=== PATIENT | male | born 1960 | race Caucasian/White ===

== ENCOUNTER 2024-10-22 12:48 | Emergency (ER) | payer MEDICARE, OTHER, SELFPAY ==
[2024-10-22 12:51] VITALS: BP 151/84
--- NOTE | 2024-10-22 13:47 | ED.GENMED ---
History of Present Illness
General
Chief Complaint: Alcohol Problem
Source: patient
Exam Limitations: none
Time Seen by Provider: 10/22/24 13:30
History of Present Illness
History of Present Illness:
64-year-old male concern for help for alcohol and sex addiction. Drinks a pint of hard liquor a day. Is been going on for a while. Also was caught on his phone with some issues that were transferred to his grandson about a sexual addiction issue.
Patient's daughter encouraged him to get help for both. He denies any acute medical complaints. He denies chest pain shortness of breath nausea vomiting withdrawal symptoms etc.
Past History
Past History
ED Past Medical History: HTN, IDDM and Other (Liver transplantm Hep C, Pancreatitis,)
ED Past Surgical History: Cholecystectomy
Social History
Tobacco: Non-smoker
Alcohol: None
Personal:
Living: with family
Review of Systems
Review of Systems
All Other Systems: Not applicable
Constitutional: Reports no symptoms
Cardiac: Reports no symptoms
ABD/GI: Reports no symptoms
: Reports no symptoms
Phy Exam
Physical Exam
Physical Exam:
GENERAL: Alert and oriented in no apparent distress
EYE: Orbits normal.
NECK: Supple, no significant adenopathy.
ENT: Pharynx without erythema
CARDIAC: Regular rate and rhythm without any obvious murmurs.
LUNGS: Clear breath sounds,normal
ABDOMEN: Soft, without focal tenderness or distention
NEUROLOGICAL: Alert and oriented , grossly non-focal
SKIN: Warm and dry, no rash or lesion, no discoloration, skin intact.
MUSCULOSKELETAL: No edema,no deformity.Good color
PSYCH: Normal and appropriate interaction.
Scores
Withdrawal Assessment of Alcohol
Withdrawal Assessment Completed?: Not applicable
Course
Orders/Labs/Results
Orders:
Orders
10/22/24 13:36
Crisis Consult Urgent
Reason for Consult: Alcohol/sex addiction
10/22/24 14:15
Alcohol Urgent
Complete Blood Count/With Diff Urgent
Comprehensive Metabolic Panel Urgent
PTT Urgent
Prothrombin Time Urgent
Abnormal Lab Results
10/22/24
14:15
RBC 4.01 L 10^6/uL
(4.70-6.10)
Hct 38.6 L %
(39.0-52.0)
MCV 96.3 H fL
(80.0-94.0)
MCH 35.2 H pg
(27.0-31.0)
Abs Immat Gran (auto) 0.1 H 10^3/uL
(0-0.05)
Absolute Lymphs (auto) 0.9 L 10^3/uL
(1.2-3.4)
Absolute Monos (auto) 0.8 H 10^3/uL
(0.1-0.6)
Immature Gran % 0.9 H %
(0-0.5)
Lymphocytes % 13.8 L %
(20.5-51.1)
Monocytes % 12.1 H %
(1.7-9.3)
Sodium 127 L mmol/L
(135-145)
Chloride 89 L mmol/L
(98-107)
Glucose 155 H mg/dl
(70-99)
10/22/24 14:15
10/22/24 14:15
Vital Signs
Initial and Last Documented VS:
Initial Vital Signs
Temp Pulse Resp BP Pulse Ox
97.9 F 80 18 151/84 97
10/22/24 12:51 10/22/24 12:51 10/22/24 12:51 10/22/24 12:51 10/22/24 12:51
Last Documented Vital Signs
Temp Pulse Resp BP Pulse Ox
97.9 F 75 14 128/78 97
10/22/24 12:51 10/22/24 14:45 10/22/24 14:45 10/22/24 14:00 10/22/24 13:54
MDM/Problems Addressed
Differential Diagnosis Includes:
Medically patient is stable. He has no acute medical issues. He is not currently in withdrawal. However for completeness and with his history of liver transplant we will check electrolytes blood sugar LFTs PT PTT. Also requested crisis and
likely [facility]. Patient absolutely denies suicidal or homicidal ideation. No indication for psychiatric committal at this point.
*Critical Care Note
Total Time (30-74mins, 75-104mins- exclusive of procedures): Not Applicable
Data Reviewed
Review of Other/Old Records Reveals: Labs, Records and Testing
Update Note
Update Note:
Patient remained medically stable and nontoxic. Seen by Liseth cortes for follow-up. Mild hyponatremia. Has had hyponatremia in the past. Feel outpatient management is reasonable. He takes significant amount of p.o. fluids with coffee. Will restrict
fluid intake and repeat labs in 3 to 4 days
ED Attending Note
-
Portions of this chart may have been created with voice recognition software.� Occasional wrong word or��sound alike� substitutions may have occurred due to the inherent limitations of voice recognition software.
Discharge Plan
Departure
Patient Disposition: Home (Routine Discharge)
Date of Disposition: 10/22/24
Time of Disposition: 15:21
Patient with high blood pressure during this ER visit?: Yes
Discharge Problem:
Alcohol addiction, Hyponatremia, Possible sexual addiction
Instructions: Alcohol Use Disorder (DC), Hyponatremia, BLOOD PRESSURE
Prescriptions:
No Action
gabapentin 600 MG tablet
600 mg PO TID@1200,1600,2200
hydrocortisone [Proctosol HC] 28.35 GM cream with perineal applicator
28.35 gm AL DAILY
amlodipine 10 MG tablet
10 mg PO DAILY
pantoprazole 40 MG tablet,delayed release (DR/EC)
40 mg PO QPM
misc antifungal combo products 30 ML tincture
1 applic topical DAILY
mometasone [Nasonex] 17 GM spray,non-aerosol
1 spray intranasal DAILY
azelastine 1 SPRAY aerosol,spray
1 spray intranasal DAILY
tacrolimus 1 MG capsule
1 mg PO BID
eszopiclone [Lunesta] 1 MG tablet
1 mg PO HSPRN PRN (Reason: insomnia)
Patient Comments:
takes 1/2 or 1 mg
Elijah Mag Zinc Plus D3 1 EACH tablet
1 ea PO QPM Qty: 0
Patient Comments:
500/250
insulin aspart U-100 [Novolog FlexPen U-100 Insulin] 300 UNITS/3 ML insulin pen
0 - 4 unit SC AC PRN (Reason: sliding scale)
Patient Comments:
Sliding scale: 0-80 = 0, 80-110= 1, 110-140= 2, 140-170= 3, 170-200= 4
metformin 500 MG tablet
500 mg PO DAILY
desoximetasone 1 APPLIC cream
1 applic topical DAILYPRN PRN (Reason: dermatitis)
alendronate 70 MG tablet
70 mg PO MALHOTRA
minoxidil 60 ML solution
1 applic topical DAILY
levothyroxine 100 MCG tablet
100 mcg PO DAILY
Patient Comments:
100 mg daily
levothyroxine 100 MCG tablet
50 mcg PO MOWEFR
Patient Comments:
01/18/2022: taken w/ 100mcg = 150mcg
ursodiol 300 MG capsule
300 mg PO BID@1200,2200
sertraline 25 MG tablet
50 mg PO HS
coenzyme H89-dihfvcs E 1 CAP capsule
1 cap PO HS
cholecalciferol (vitamin D3) 2,000 UNITS tablet
2,000 units PO DAILY@1200
vitamin E (dl, acetate) 400 UNITS capsule
400 units PO DAILY@1200
testosterone [AndroGel] 1.25 GM gel in packet
1 applic topical DAILY
esorbzka-fjo-blizi-Bosw-hyalur 1 EACH tablet extended release 12 hr
1 ea PO BID@1200,2200
Cla Oil
800 mg PO DAILY@1200
Mct
1 tab PO DAILY@1200
gabapentin 300 MG capsule
300 mg PO DAILY@0800
rosuvastatin 20 MG tablet
20 mg PO HS
losartan 50 MG tablet
100 mg PO HS
Toujeo SoloStar U-300 Insulin 300 UNIT/ML insulin pen
10 unit SC DAILY Qty: 0 0RF
Creon 36,000-114,000- 180,000 unit Capsule,Delayed Release(Dr/Ec)
3 cap PO TID
Referrals:
UNKNOWN - PT NOT,INTERVIEWE [Family Provider] -
Activity Restrictions/Additional Instructions:
Follow-up with [facility] practice in the next 3 to 5 days
Get your labs repeated this coming Saturday
Fluid restriction at home
Interventions
Interventions:
*Risk Screen - Suicide Last Done: 10/22/24 12:54
*General Assessment Last Done: 10/22/24 12:54
*Neglect/Abuse Screening Last Done: 10/22/24 13:53
ED- Fall Risk Assessment Last Done: 10/22/24 13:53
*ED COVID-19 Vaccine History Last Done: 10/22/24 13:53
ED- Neurological Assessment Last Done: 10/22/24 13:53
ED-Psychological Assessment Last Done: 10/22/24 13:53
Discharge Date and Time
Print Language: MAURITIAN
[2024-10-22 13:53] VITALS: BMI 28.1
[2024-10-22 13:54] VITALS: BP 141/65
[2024-10-22 14:00] VITALS: BP 128/78
[2024-10-22 14:27] LABS: % Basophils 1.4 % (0-2); % Eosinophils 4.2 % (0-6); % Immature Granulocytes 0.9 % (0-0.5); % Lymphocytes 13.8 % (20.5-51.1); % Monocytes 12.1 % (1.7-9.3); % Neutrophils 67.6 % (42.2-75.2); Absolute Basophils 0.1 10^3/uL (0-0.2); Absolute Eosinophils 0.3 10^3/uL (0-0.7); Absolute Immature Granulocytes 0.1 10^3/uL (0-0.05); Absolute Lymphocytes 0.9 10^3/uL (1.2-3.4); Absolute Monocytes 0.8 10^3/uL (0.1-0.6); Absolute Neutrophils 4.5 10^3/uL (1.4-6.5); Hematocrit 38.6 % (39.0-52.0); Hemoglobin 14.1 g/dL (13.0-18.0); Mean Corp Hgb Conc. 36.5 g/dL (33.0-37.0); Mean Corpuscular Hgb 35.2 pg (27.0-31.0); Mean Corpuscular Volume 96.3 fL (80.0-94.0); Mean Platelet Volume 8.4 fL (7.4-10.4); Nucleated Red Blood Cells % 0 % (-); Platelet Count 230 10^3/uL (130-400); Red Blood Cell Count 4.01 10^6/uL (4.70-6.10); Red Cell Dist. Width 12.3 % (11.5-14.5); White Blood Cell Count 6.6 10^3/uL (4.8-10.8)
[2024-10-22 14:38] LABS: PT 12.7 Sec (11.4-14.6)
[2024-10-22 14:39] LABS: APTT 27.4 Sec (23.4-35.0)
[2024-10-22 14:42] LABS: ALT (SGPT) 37 U/L (0-50); AST (SGOT) 35 U/L (17-59); Albumin 4.7 g/dl (3.5-5.0); Alkaline Phosphatase 71 U/L (38-126); Blood Urea Nitrogen 17 mg/dl (9-20); Calcium 9.9 mg/dl (8.4-10.2); Carbon Dioxide 26 mmol/L (22-30); Chloride 89 mmol/L (98-107); Estimated Creatinine Clearance 61 ml/min; Glucose 155 mg/dl (70-99); Potassium 5.1 mmol/L (3.5-5.1); Sodium 127 mmol/L (135-145); Total Bilirubin 0.5 mg/dl (0.2-1.3); Total Protein 6.9 g/dl (6.3-8.2); eGFR > 60.00
[2024-10-22 14:45] LABS: Alcohol None Detected
[2024-10-22 15:00] VITALS: BP 135/72
[2024-10-22 15:26] VITALS: BP 145/76
--- NOTE | 2024-10-22 15:39 | EDRN ---
Reviewed discharge instructions with patient. Verbalized understanding. Ambulated with steady gait to the lobby.
[2024-10-22 15:40] VITALS: BP 145/76
== END 2024-10-22 15:35 | disposition home or self-care (01) ==
LOC: EMR 12:48
PROVIDERS: EMERGENCY PHYSICIAN Emergency Medicine
DX: F10.20 Alcohol dependence, uncomplicated (principal); E87.1 Hypo-osmolality and hyponatremia; I10 Essential (primary) hypertension; E11.9 Type 2 diabetes mellitus without complications; Z86.19 Personal history of other infectious and parasitic diseases; Z90.49 Acquired absence of other specified parts of digestive tract
CPT/HCPCS: 99283; 80053; 82077; 85025; 85610; 85730

== ENCOUNTER → 2024-12-07 16:05 | Outpatient (REF) | payer MEDICARE, OTHER, SELFPAY ==
[2024-12-07 17:42] LABS: ALT (SGPT) 49 U/L (0-50); AST (SGOT) 39 U/L (17-59); Albumin 4.9 g/dl (3.5-5.0); Alkaline Phosphatase 77 U/L (38-126); Blood Urea Nitrogen 22 mg/dl (9-20); Calcium 9.9 mg/dl (8.4-10.2); Carbon Dioxide 28 mmol/L (22-30); Chloride 90 mmol/L (98-107); Glucose 207 mg/dl (70-99); Potassium 4.8 mmol/L (3.5-5.1); Sodium 129 mmol/L (135-145); Total Bilirubin 0.8 mg/dl (0.2-1.3); Total Protein 7.2 g/dl (6.3-8.2); eGFR 51.03
[2024-12-10 03:31] LABS: Tacrolimus (Prograft - FK506) 4.4 ng/mL
== END ==
LOC: RAD 16:05
PROVIDERS: ATTENDING PHYSICIAN Physician Assistant; FAMILY PHYSICIAN Family Medicine; REFERRING PHYSICIAN Internal Medicine Transplant Hepatology
DX: M81.0 Age-related osteoporosis without current pathological fracture (principal); W18.30XA Fall on same level, unspecified, initial encounter; Z94.4 Liver transplant status
CPT/HCPCS: 36415; 73502; 80053; 80197

== ENCOUNTER → 2024-12-30 13:50 | Outpatient (REF) | payer MEDICARE, OTHER, SELFPAY ==
[2024-12-30 16:04] LABS: Blood Urea Nitrogen 15 mg/dl (9-20); Calcium 9.9 mg/dl (8.4-10.2); Carbon Dioxide 22 mmol/L (22-30); Chloride 93 mmol/L (98-107); Glucose 85 mg/dl (70-99); Potassium 4.5 mmol/L (3.5-5.1); Sodium 130 mmol/L (135-145); eGFR > 60.00
[2024-12-30 16:25] LABS: Vitamin D, 25-OH*** 63.6 ng/mL (30-80)
[2025-01-01 14:12] LABS: AFP Male/Tumor Marker 10 ng/mL (0-9)
[2025-01-01 14:28] LABS: % Free Testosterone 1.9 % (1.6-2.9); Free Testosterone 95 pg/mL (47-244); Sex Hormone Binding Globulin 32 nmol/L (19-76); Total Testosterone 495 ng/dL (300-720)
== END ==
LOC: RAD 13:50
PROVIDERS: ATTENDING PHYSICIAN Physician Assistant; FAMILY PHYSICIAN Family Medicine
DX: M81.0 Age-related osteoporosis without current pathological fracture (principal); N40.1 Benign prostatic hyperplasia with lower urinary tract symptoms; Z00.00 Encounter for general adult medical examination without abnormal findings; M54.12 Radiculopathy, cervical region; K52.9 Noninfective gastroenteritis and colitis, unspecified; N18.2 Chronic kidney disease, stage 2 (mild); K86.1 Other chronic pancreatitis; B18.2 Chronic viral hepatitis C; E11.9 Type 2 diabetes mellitus without complications; R10.13 Epigastric pain; K31.7 Polyp of stomach and duodenum; Z94.4 Liver transplant status; E78.00 Pure hypercholesterolemia, unspecified; F32.0 Major depressive disorder, single episode, mild; E11.40 Type 2 diabetes mellitus with diabetic neuropathy, unspecified
CPT/HCPCS: 36415; 77080; 80048; 82105; 82306; 84270; 84402; 84403

== ENCOUNTER 2025-02-15 20:39 | Inpatient (IN) | payer MEDICARE, OTHER, SELFPAY ==
[2025-02-15 14:21] VITALS: BP 136/73
[2025-02-15 14:56] LABS: % Basophils 0.5 % (0-2); % Eosinophils 1.5 % (0-6); % Immature Granulocytes 0.3 % (0-0.5); % Lymphocytes 7.4 % (20.5-51.1); % Monocytes 7.9 % (1.7-9.3); % Neutrophils 82.4 % (42.2-75.2); Absolute Basophils 0.1 10^3/uL (0-0.2); Absolute Eosinophils 0.2 10^3/uL (0-0.7); Absolute Neutrophils 10.8 10^3/uL (1.4-6.5); Hematocrit 37.4 % (39.0-52.0); Hemoglobin 13.8 g/dL (13.0-18.0); Mean Corp Hgb Conc. 36.9 g/dL (33.0-37.0); Mean Corpuscular Volume 89.5 fL (80.0-94.0); Mean Platelet Volume 8.7 fL (7.4-10.4); Nucleated Red Blood Cells % 0 % (-); Platelet Count 273 10^3/uL (130-400); Red Blood Cell Count 4.18 10^6/uL (4.70-6.10); Red Cell Dist. Width 10.9 % (11.5-14.5); White Blood Cell Count 13.1 10^3/uL (4.8-10.8)
[2025-02-15 15:01] LABS: ALT (SGPT) < 10 U/L (0-50); AST (SGOT) 19 U/L (17-59); Albumin 4.1 g/dl (3.5-5.0); Alkaline Phosphatase 74 U/L (38-126); Blood Urea Nitrogen 19 mg/dl (9-20); Calcium 10.1 mg/dl (8.4-10.2); Carbon Dioxide 25 mmol/L (22-30); Chloride 94 mmol/L (98-107); Glucose 202 mg/dl (70-99); Potassium 4.2 mmol/L (3.5-5.1); Sodium 127 mmol/L (135-145); Total Bilirubin 0.7 mg/dl (0.2-1.3); Total Protein 6.4 g/dl (6.3-8.2); eGFR > 60.00
[2025-02-15] MEDS: NSS 1000 IV (17:22)
--- NOTE | 2025-02-15 17:34 | ED.GENMED ---
History of Present Illness
General
Chief Complaint: Weakness
Source: patient
Exam Limitations: none
Time Seen by Provider: 02/15/25 16:43
Nursing documentation reviewed up to this point in time: agreed with
History of Present Illness
History of Present Illness:
Patient is a 64-year-old male with history of Parkinson's, hypertension, hyperlipidemia, hepatitis C s/p liver transplant presenting to the emergency department with cough and generalized weakness. Patient states he has had a nonproductive cough
for the past 2 days. He has been progressively becoming more weak and has had multiple falls at home. All of these falls have been witnessed and he denies any head strike or loss of consciousness.
He is having difficulty ambulating secondary to weakness. Patient denies any fever, chills, chest pain, or shortness of breath. Patient denies any numbness/tingling or pain in extremities. Patient has had no nausea, vomiting, or diarrhea.
He does note some urinary frequency although denies any dysuria.
Patient's states that he was coughing 'nonstop 'last night.
No known sick contacts.
Past History
Past History
ED Past Medical History: HTN, IDDM and Other (Liver transplantm Hep C, Pancreatitis,)
ED Past Surgical History: Cholecystectomy
Social History
Tobacco: Non-smoker
Alcohol: None
Personal:
Living: with family
Review of Systems
Review of Systems
Allergies reviewed?: Yes
All Other Systems: ROS reviewed and negative except as documented in HPI and ROS
Phy Exam
Physical Exam
Physical Exam:
Vitals: Patient's vital signs are stable. Afebrile
General: Patient is well appearing, no acute distress
Skin: Warm and dry, no rashes or lesions
Head: Normocephalic, atraumatic
Eyes: Sclera nonicteric. EOMs intact. No nystagmus.
Throat: Protecting airway
Neck: Normal ROM, no cervical spine tenderness, no meningismus
Cardiac: Regular rate and rhythm, no murmurs.
Pulm: Normal respiratory effort. Coarse lung sounds bilaterally with no wheeze. Tachypnea. Not hypoxic
Abdomen: Abdomen soft and nontender.
Extremities: No evidence of cyanosis or edema. Palpable DP pulses bilaterally
Neuro: AAOx3. Grossly intact.
Psychiatric: Normal affect.
Course
Orders/Labs/Results
Orders:
Orders
02/15/25 14:23
Electrocardiogram (*1) Urgent
Reason for Study: Fatigue / Weakness
EKG- Treatment ONCE
02/15/25 14:38
Complete Blood Count/With Diff Urgent
Comprehensive Metabolic Panel Urgent
Serum Osmolality Urgent
Comment: ADD ON
02/15/25 17:01
Cardiac Monitoring- Treatment ONCE
0.9% Sodium Chloride 1000 ml [Nss] 1,000 ml IV BOLUS
CR Chest - 2 Views Urgent
Comment:
Reason For Exam: cough, weakness
02/15/25 17:02
Add On- LAB Urgent
Tests Added?: serum osmolality
02/15/25 17:10
COVID-19 Antigen Urgent
Source: Nasal Swab
Influenza A+B Rapid Molecular Urgent
MICHI Source: Nasal Swab
Specimen Description:
02/15/25 18:31
Osmolality, Random Urine Urgent
Date Specimen was Collected: 02/15/25
Time Specimen was Collected: 18:29
Urinalysis Reflex To Culture Urgent
Date Specimen was Collected: 02/15/25
Time Specimen was Collected: 18:29
Urine Microscopic Reflex Cult Urgent
Urine Sodium Urgent
Date Specimen was Collected: 02/15/25
Time Specimen was Collected: 18:29
Urine Culture Urgent
MICHI Source: U
Specimen Description:
Date Specimen was Collected: 02/15/25
Time Specimen was Collected: 18:29
02/15/25 18:36
Azithromycin 500 mg/250 ml [Zithromax Infusion] 500 mg in 250 ml IV NOW
CefTRIAXone [Rocephin] 1,000 mg IV NOW STA
02/15/25 19:33
Admit/Transfer Patient As Directed
Co-Sign Provider:
Level of Care: Inpatient admission
Assign to:: Medical/Surgical
Physician / Group: Kishore
Diagnosis: Bronchitis / Pneumonia, Parkinson's
Reason for Hospitalization: Bronchitis / Pneumonia, Parkinson's
Expected length of stay greater than two midnights?: Yes
ELOS- Estimated Length of Stay in days: 3
I certify the patient meets the requirements for IP care: Yes
PRN Pain Medication Management As Directed
May give lesser potent ordered pain med per pt: Yes
preference::
Protocol:: Medication orders for pain may be administered in a
manner that supports deferring to patient preference
when the pt is:
- Requesting an ordered lesser potent pain medication.
Least to most potent pain medications are defined
as: acetaminophen < NSAID < tramadol < opioids
(morphine, oxycodone, hydromorphone).
- Requesting a lesser dose of the same medication IF
ORDERED.
- Requesting a less intrusive route of administration
if both routes are prescribed by the provider (PO <
IV).
02/15/25 19:36
Code Status As Directed
Resuscitation Status: Full Code
02/15/25 19:39
Promethazine/Codeine [Phenergan with Codeine Syrup] 5 ml PO NOW STA
02/15/25 22:22
Acetaminophen [Tylenol] 650 mg PO Q4HPRN PRN
Albuterol Nebs [Ventolin Nebules] 2.5 mg INH R Q4HPRN PRN
Carbidopa/Levodopa [Sinemet 25-100] 1 tablet PO TID
Dextrose 50%-Water [Dextrose 50% Syringe] 12.5 grams IV [id number] PRN
Doxycycline [Vibramycin] 100 mg PO Q12
Glucagon [GlucaGen] 1 mg IM PRN PRN
Guaifenesin [Mucinex] 600 mg PO Q12
Losartan [Cozaar] 100 mg PO HS
Promethazine/Codeine [Phenergan with Codeine Syrup] 5 ml PO Q4HPRN PRN
Rosuvastatin Calcium [Crestor] 10 mg PO HS
Sertraline HCl [Zoloft] 25 mg PO HS
Tacrolimus [Prograf] 1 mg PO HS
Ursodiol [Sally] 250 mg PO BID
02/15/25 22:22
TSH Reflex To Free T4 Routine
Tacrolimus (Prograft - FK506) [S] Routine
Activity As Directed
Activity Level: Ambulate
With Assistance
Bedside Glucose Monitoring As Directed
Frequency: AC&HS
Additional Instructions:: Change to q6h if pt on TPN, tube feeding or not eating
Bladder Scan As Directed
Follow Bladder Retention/Intermittent Cath Algorithm?: Yes
PRN if no void in __ hours: 6
Frequency: Per Retention Algorithm
If Bladder Scan Result >: 400
then:: Straight cath
I/O [Intake/ Output] As Directed
Frequency: Per unit guidelines
Orthostatic Vital Signs As Directed
Orthostatic VS Frequency: BID
Straight Cath As Directed
Frequency: Per Retention Algorithm
Additional Instructions: straight cath as needed per acute urinary retention algorithm for 24 hrs
Additional Instructions: for bladder scan greater than 400 mL
Vital Signs As Directed
Frequency: Per unit guidelines
Weight As Directed
Frequency: Daily
Chest PT [Rx Chest Pt] [RESP] Routine
Special Instructions: BID
Oxygen Therapy [O2 Therapy] [RESP] Routine
Titrate/Wean O2 to maintain O2 sat greater than (%): 94
Ot Eval And Treat Routine
PT Consult [Pt Eval And Treat] Routine
Activity Level: Ambulate
With Assistance
Speech Therapy Eval & Treat Routine
DX Deep Vein Thrombosis Video Routine
02/15/25 23:00
Gabapentin [Neurontin] 600 mg PO TID@1200,1600,2200
02/16/25 Breakfast
2000 calorie (17 carb) Diabetic
At Your Request: Full Participation
Fluid Restriction: 1440 mL/day (48 oz)
Basic Metabolic Panel IN AM
Complete Blood Count/No Diff IN AM
Cortisol, Random IN AM
Glycohemoglobin (HgbA1c) IN AM
Levothyroxine [Synthroid] 100 mcg PO DAILY @ 0600
02/16/25 07:30
Insulin Aspart Corrective Low [Novolog Flexpen-Low Resistance] See Protocol SC AC
02/16/25 08:00
Amlodipine [Norvasc] 10 mg PO DAILY
Finasteride [Proscar] 5 mg PO DAILY
Gabapentin [Neurontin] 300 mg PO DAILY
Tacrolimus [Prograf] 0.5 mg PO DAILY
Tamsulosin [Flomax] 0.4 mg PO DAILY
insulin glargine U-300 conc [Toujeo SoloStar U-300 Insulin] 18 unit SC DAILY
[id number]-zwlbesbr-jrawlqc [Creon] 5 cap PO MEALS
02/16/25 12:00
Cholecalciferol (Vitamin D3) [VITAMIN D3 (cholecalciferol)] 50 mcg PO NOON
02/16/25 18:00
CefTRIAXone [Rocephin] 1,000 mg IV Q24H
Cetirizine HCl [Zyrtec] 10 mg PO QPM
Enoxaparin Sodium [Lovenox] 40 mg SC QPM
Pantoprazole [Protonix] 20 mg PO QPM
02/17/25 06:00
Levothyroxine [Synthroid] 50 mcg PO MoWeFr@0600
Abnormal Lab Results
02/15/25 02/15/25
14:38 18:31
WBC 13.1 H 10^3/uL
(4.8-10.8)
RBC 4.18 L 10^6/uL
(4.70-6.10)
Hct 37.4 L %
(39.0-52.0)
MCH 33.0 H pg
(27.0-31.0)
RDW 10.9 L %
(11.5-14.5)
Absolute Neuts (auto) 10.8 H 10^3/uL
(1.4-6.5)
Absolute Lymphs (auto) 1.0 L 10^3/uL
(1.2-3.4)
Absolute Monos (auto) 1.0 H 10^3/uL
(0.1-0.6)
Neutrophils % 82.4 H %
(42.2-75.2)
Lymphocytes % 7.4 L %
(20.5-51.1)
Sodium 127 L mmol/L
(135-145)
Chloride 94 L mmol/L
(98-107)
Glucose 202 H mg/dl
(70-99)
Serum Osmolality 269 L mOsm/kg
(275-300)
Urine Ketones 1+ A
(Negative)
Leukocyte Esterase Rfl 1+ A
(Negative)
Urine Bacteria (Reflex) Few A
(Negative)
Urine Albumin (Reflex) 4+ A
(Neg - Trace)
02/15/25 14:38
02/15/25 14:38
Vital Signs
Initial and Last Documented VS:
Initial Vital Signs
Temp Pulse Resp BP Pulse Ox
98.7 F 82 16 136/73 98
02/15/25 14:21 02/15/25 14:21 02/15/25 14:21 02/15/25 14:21 02/15/25 14:21
Last Documented Vital Signs
Temp Pulse Resp BP Pulse Ox
98.7 F 79 21 158/66 95
02/15/25 14:21 02/15/25 21:15 02/15/25 21:15 02/15/25 21:00 02/15/25 21:15
MDM/Problems Addressed
Differential Diagnosis Includes:
Not limited to: Viral illness, pneumonia, bronchitis, UTI, electrolyte abnormality, acute dehydration, etc.
MDM/Problems Addressed:
64-year-old male with 2 days of nonproductive cough and worsening generalized weakness sustaining multiple falls at home. No chest pain, shortness of breath, fevers. Vitals stable. Physical exam as above. Patient is well-appearing, in no
apparent distress. Heart with regular rate and rhythm. Patient does not appear to be in any respiratory distress otherwise coarse lung sounds bilaterally without any wheezing. He is not hypoxic tachypneic. Soft and nontender. Patient has no
lower extremity edema and is perfusing well. Strength of bilateral extremities grossly intact on exam with no other focal neurologic deficits. There is no evidence of head or neck trauma or extremity injuries or recent falls. Basic labs were sent
off in triage significant for a leukocytosis of 13.1 with left shift. He has hyponatremia with a sodium of 127 which appears just slightly lower than baseline. EKG shows normal sinus rhythm without acute ischemic changes. Given generalized
weakness progressively worsening�patient will likely require admission. With cough and leukocytosis that is concern for possible underlying infectious process. Will check chest x-ray, urinalysis, viral studies. Will give IV fluids.
Update: Viral studies negative. Chest x-ray on my assessment shows possible left upper lobe infiltrate concerning for pneumonia. Given possible pneumonia currently immunocompromised with generalized weakness�patient will require admission for IV
antibiotics and further management. Will initiate IV Rocephin, azithromycin in emergency department. Patient excepted to hospitalist service for further evaluation/management.
Chronic conditions affecting care:
Parkinson's, hypertension, hepatitis C s/p liver transplant
Acute Exacerbation and/or Progression of Chronic Illness:
Acute on chronic hyponatremia
*Radiology
Radiology exam reviewed: preliminary read by ED provider (X-ray reviewed by me-possible left upper lobe infiltrate)
*Pulse Oximetry
Patient hypoxic: no
*EKG
Interpreted by ED Provider?: Yes
EKG Intrepretation Date: 02/15/25
Interpretation: abnormal
Comparison EKG: changes noted
Heart Rate: 77
Rate: normal
Rhythm: sinus
De Berry: right axis deviation
Interval: normal QT interval
QRS Pattern: normal QRS
*Seed Sorter Interpretation
Rate: normal
Interpretation: normal
Heart Rate: 80
Rhythm: sinus
*Critical Care Note
Total Time (30-74mins, 75-104mins- exclusive of procedures): Not Applicable
Patient Management
Discussion with other providers: Hospitalist
Escalation/DeEscalation of care consider admission/obs:
Admit for IV antibiotics, further management
ED Attending Note
-
Portions of this chart may have been created with voice recognition software.� Occasional wrong word or��sound alike� substitutions may have occurred due to the inherent limitations of voice recognition software.
Discharge Plan
Departure
Patient Disposition: Admit
Date of Disposition: 02/15/25
Time of Disposition: 18:39
Presentation/result/management discussed w/ accepting MD/DO: Hospitalist
Discharge Problem:
Community acquired pneumonia, Generalized weakness, Hyponatremia
Interventions
Interventions:
*Risk Screen - Suicide Last Done: 02/15/25 14:21
*General Assessment Last Done: 02/15/25 22:24
*Neglect/Abuse Screening Last Done: 02/15/25 14:21
*ED- Fall Risk Assessment Last Done: 02/15/25 22:24
*ED COVID-19 Vaccine History Last Done: 02/15/25 22:36
*Nursing Disposition Last Done: 02/15/25 22:24
ED- Cardiac Assessment Last Done: 02/15/25 19:08
ED- Neurological Assessment Last Done: 02/15/25 19:08
ED- Pulmonary Assessment Last Done: 02/15/25 19:08
[2025-02-15 17:36] LABS: Osmolality Serum 269 mOsm/kg (275-300)
[2025-02-15 17:47] LABS: COVID-19 Antigen Negative (Negative)
[2025-02-15 18:44] LABS: Osmolality Urine 731 mOsm/kg (300-900)
[2025-02-15 18:45] LABS: Urine Albumin 4+ (Neg - Trace); Urine Bilirubin Negative (Negative); Urine Character Clear (Clear); Urine Color Yellow; Urine Glucose Negative (Negative); Urine Ketone 1+ (Negative); Urine Leukocyte 1+ (Negative); Urine Nitrite Negative (Negative); Urine Occult Blood Negative (Negative); Urine Specific Gravity 1.015 (<1.030); Urine Urobilinogen Negative (Neg - 1+)
[2025-02-15] MEDS: ZITHROMAX INFUSION 250 IV (18:59)
[2025-02-15] MEDS: ROCEPHIN 1000 MG IV (18:59)
[2025-02-15 19:04] LABS: Urine Sodium 33 mmol/L (30-90)
--- NOTE | 2025-02-15 19:39 | HPS.HSE ---
Family Physician
-
Family Physician: * NONE
Chief Complaint
-
Cough, Weakness, Fall
History of Present Illness
Patient is a 64y M with PMH significant for hypertension, DM-II and liver transplant s/p Hep C treatment who presents to ED complaining of fall at home today. Patient states that he was recently diagnosed with Parkinson's disease. He started on
Sinemet about 2-3 weeks ago and has noted some improvement in bradykinesia / rigidity. He has felt more weak however. Today he had a fall at home when his legs 'gave out'. He denies striking his head, LOC / syncope or any significant injury or
trauma. He was unable to get up - even with assistance from his and EMS was called. Patient was brought to the ED for further evaluation and treatment.
Patient states that he has had hacking, minimally productive cough for about one week. No fevers / chills. No known sick contacts.
Patient denies any other focal complaints including N/V/D, dysuria, etc.
Medical History
Past Medical History
Past Medical History: Reports Other
Additional Past Medical History:
Parkinson's Disease
Liver Transplant (Hep C)
Hypertension
DM-II
Hypothyroidism
Chronic Hyponatremia
CKD III
Hep C s/p Treatment
BPH
Anxiety / Depression
Past Surgical History: Reports Other
Additional Past Surgical History:
Liver Transplant
Left Ankle Surgery
Social History
Tobacco: Former Smoker (Quit smoking 30 years ago. )
Alcohol: None
Drug: None
Family History
Family History: Not pertinent
Allergies / Home Medications
Allergies reflects when Allergies were last updated in [facility].
Home Medications with original date entered in [facility]
Allergy/Medication List:
Allergies
Allergy/AdvReac Type Severity Reaction Status Date / Time
gadobutrol [From Gadavist] Allergy Unknown Verified 02/15/25 14:22
Gadolinium-Containing Allergy patient Verified 02/15/25 14:22
Contrast Medi reports
allergy
iodine Allergy Hives,rash Verified 02/15/25 14:22
meperidine Allergy N/V Verified 02/15/25 14:22
pregabalin [From Lyrica] Allergy Anaphylaxis Verified 02/15/25 14:22
Home Medications
amlodipine 10 mg tablet 10 mg PO DAILY Blood pressure 08/23/14
calcium 333 mg-vit D3 133 unit-magnesium 133 mg-zinc 5 mg tablet (Elijah Mag Zinc Plus D3) 1 ea PO QPM Supplement ##0 08/23/14
gabapentin 600 mg tablet 600 mg PO TID@1200,1600,2200 Neurological Condition 08/23/14
tacrolimus 1 mg capsule, immediate-release 1 mg PO HS Transplant 08/23/14
Cla Oil 800 mg PO NOON Supplement 12/26/21
Mct 1 tab PO NOON Supplement 12/26/21
alendronate 70 mg tablet 70 mg PO MALHOTRA osteoporosis 12/26/21
cholecalciferol (vitamin D3) 50 mcg (2,000 unit) tablet 2,000 units PO NOON Supplement 12/26/21
ezlz-zsd-lrvu-Bosw-hyal ER 750 mg-50 mg-100 mg tablet,extend rel 12 hr 1 ea PO BID@1200,2200 herbal 12/26/21
levothyroxine 100 mcg tablet 50 mcg PO MOWEFR Thyroid 12/26/21
levothyroxine 100 mcg tablet 100 mcg PO DAILY Thyroid 12/26/21
metformin 500 mg tablet 500 mg PO BID Diabetes 12/26/21
sertraline 25 mg tablet 25 mg PO HS Depression 12/26/21
vitamin E (dl, acetate) 180 mg (400 unit) capsule 400 units PO NOON Supplement 12/26/21
gabapentin 300 mg capsule 300 mg PO DAILY Neurological Condition 01/18/22
rgwmjv-usblyrdy-svxjpvl 36,000-114,000-180,000 unit capsule,delay rel (Creon) 5 cap PO MEALS 11/22/22
azelastine 137 mcg (0.1 %) nasal spray 1 spray intranasal DAILY 02/15/25
carbidopa 25 mg-levodopa 100 mg tablet 1 tab PO TID 02/15/25
cetirizine 10 mg tablet (Zyrtec) 10 mg PO QPM 02/15/25
coenzyme Q10 100 mg capsule (CoQ-10) 100 mg PO HS 02/15/25
finasteride 5 mg tablet 5 mg PO DAILY 02/15/25
flaxseed oil-omega 3,6,9-fatty acids 1,300 mg-670 mg-155 mg capsule 1 cap PO HS 02/15/25
hydrocortisone 2.5 % topical cream with perineal applicator 1 applic ID DAILY 02/15/25
insulin glargine U-300 conc 300 unit/mL (1.5 mL) subcutaneous pen (Toujeo SoloStar U-300 Insulin) 18 unit SC DAILY Diabetes 02/15/25
insulin lispro 100 unit/mL subcutaneous pen (Humalog KwikPen (U-100) Insulin) 0 - 5 sliding scale dose SC AC 02/15/25
losartan 100 mg tablet 100 mg PO HS 02/15/25
minoxidil 5 % topical solution 1 ml topical DAILY scalp 02/15/25
mometasone 50 mcg/actuation nasal spray 1 spray intranasal DAILY 02/15/25
pantoprazole 20 mg tablet,delayed release 20 mg PO QPM 02/15/25
rosuvastatin 10 mg tablet 10 mg PO HS 02/15/25
tacrolimus 0.5 mg capsule, immediate-release 0.5 mg PO DAILY 02/15/25
tamsulosin 0.4 mg capsule 0.4 mg PO DAILY 02/15/25
testosterone 2 pump topical DAILY 02/15/25
tirzepatide 2.5 mg/0.5 mL subcutaneous pen injector (Mounjaro) 2.5 mg SC MALHOTRA 02/15/25
ursodiol 250 mg tablet 250 mg PO BID 02/15/25
Review of Systems
-
History Source: Patient
A 12 point ROS was completed and negative except as noted: Yes
Constitutional: Reports Fatigue; Denies Fever or Chills
EENT: Denies Sore Throat
Respiratory: Reports Cough; Denies Trouble Breathing
Cardiac: Denies Chest Pain or Palpitations
Abdomen/GI: Denies Abdominal Pain, Nausea, Vomiting or Diarrhea
: Reports Frequency; Denies Dysuria, Urgency or Bleeding
Musculoskeletal: Denies Joint Pain or Edema
Neurological: Reports Weakness; Denies Dizzy or Headache
Psych: Denies Depression or Anxiety
Physical Exam
Vital Signs
Vital Signs
Temp Pulse Resp BP Pulse Ox
98.7 F 81 24 136/73 93
02/15/25 14:21 02/15/25 19:10 02/15/25 19:10 02/15/25 14:21 02/15/25 19:10
Physical Exam
General: Other (64y M in no acute distress. Cough during exam.)
HEENT: Moist mucous membranes and PERRLA
Respiratory: Other (Scattered coarse breath sounds that clear with cough. No focal rhonchi. )
Cardiac: S1/S2 and Regular Rhythm; No Murmur
GI: Soft, Non Tender, Non Distended and Normal Bowel Sounds
Musculoskeletal: No Clubbing, No Cyanosis and No Edema
Neuro: Other (Mild bradykinesia. No significant rigidity. Somewhat flat affect.)
Psych: No Anxious or Depressed
Laboratory Results
-
02/15/25 14:38
02/15/25 14:38
Laboratory Results
Total Bilirubin 0.7 mg/dl (0.2-1.3) 02/15/25 14:38
AST 19 U/L (17-59) 02/15/25 14:38
ALT < 10 U/L (0-50) 02/15/25 14:38
Alkaline Phosphatase 74 U/L (38-126) 02/15/25 14:38
Impression/Plan
-
A/P: Patient is a 64y M with PMH significant for HTN, DM-II, Parkinson's and prior liver transplant who presents to ED complaining of weakness, fall and cough.
Fall at Home
Generalized Weakness
- Admit for further evaluation and treatment.
- Likely multifactorial and secondary to recently diagnosed Parkinson's, acute infectious process, etc.
- No acute injury, head trauma or LOC.
- PT / OT evaluations.
- Treat underlying issues as noted below.
Pneumonia / Bronchitis
- Latter seems more likely with unremarkable CXR.
- Continue abx given immunocompromise (transplant therapy).
- Cough suppressant, mucolytics, nebs, etc.
- Follow for clinical improvement.
- Monitor for fever, increased dyspnea, etc.
Chronic Hyponatremia
- Na = 129 (corrected for glucose) which is consistent with recent values.
- Patient does note that he drinks 6-8 bottles of water and 6-8 cups of coffee daily.
- Modest fluid restriction and follow for changes.
- Check TFTs, cortisol, etc.
Parkinson's Disease
- Relatively new diagnosis on only on Sinemet for about 2-3 weeks.
- Could consider dose adjustment - defer to outpatient neurology (Dr. Sanders).
- PT / OT as noted above.
- Continue current Sinemet dose without change for now.
Liver Transplant Status
Immunocompromised State
History of Hep C s/p Treatment
- Stable. Check tacrolimus level.
- Continue current regimen without changes for now.
Benign Hypertension
- Stable. Continue outpatient regimen.
DM-II
- Stable. Hold metformin.
- SSI coverage as needed.
- Update A1C.
Hypothyroidism
- Continue current T4 replacement. Update TFTs.
Pancreatic Insufficiency
- Stable. Continue Creon with meals.
DVT Prophylaxis: Lovenox
Code Status: Full
[2025-02-15 20:00] VITALS: BP 133/76
[2025-02-15 20:06] LABS: Urine Bacteria Few (Negative); Urine Red Blood Cell 0-2 /HPF (0-2); Urine Squamous Cell 0-2 /LPF (Few)
[2025-02-15] MEDS: PHENERGAN WITH CODEINE SYRUP 5 ML PO ×2 (20:15→23:14)
[2025-02-15 21:00] VITALS: BP 158/66
[2025-02-15 22:37] LABS: Glucose - Point of Care 169 mg/dl (70-99)
[2025-02-15 22:45] VITALS: BP 142/69
[2025-02-15 23:13] VITALS: BP 142/69; BP 147/70; BP 155/92; PULSE 76; PULSE 81; PULSE 86
[2025-02-15] MEDS: CRESTOR 10 MG PO (23:14)
[2025-02-15] MEDS: TYLENOL 650 MG PO (23:14)
[2025-02-15] MEDS: MUCINEX 600 MG PO (23:14)
[2025-02-15] MEDS: ZOLOFT 25 MG PO (23:14)
[2025-02-15] MEDS: SINEMET 25-100 1 TABLET PO (23:14)
[2025-02-15] MEDS: VIBRAMYCIN 100 MG PO (23:15)
[2025-02-15] MEDS: PROGRAF 1 MG PO (23:15)
[2025-02-15] MEDS: COZAAR 100 MG PO (23:15)
[2025-02-15 23:24] VITALS: BMI 26.8
[2025-02-15] MEDS: URSO 250 MG PO (23:26)
[2025-02-15] MEDS: NEURONTIN 600 MG PO (23:26)
[2025-02-15 23:55] VITALS: BP 142/69; BP 147/70; BP 155/92; PULSE 76; PULSE 81; PULSE 86
[2025-02-16] MEDS: PHENERGAN WITH CODEINE SYRUP 5 ML PO ×4 (03:48→20:39)
[2025-02-16] MEDS: SYNTHROID 100 MCG PO (05:15)
[2025-02-16 06:00] VITALS: BMI 26.8
[2025-02-16 07:22] LABS: Glucose - Point of Care 147 mg/dl (70-99)
--- NOTE | 2025-02-16 07:27 | W.PN.HOSP.TC ---
Today's Communication/Plan
-
PT
Bowel regimen
Hopefully discharge tomorrow if patient continues to feel better
Assessment / Plan
Assessment / Plan
Physical Exam
General: Other (64y M in no acute distress. Cough during exam.)
HEENT: Moist mucous membranes and PERRLA
Respiratory: Other (Scattered coarse breath sounds that clear with cough. No focal rhonchi. )
Cardiac: S1/S2 and Regular Rhythm; No Murmur
GI: Soft, Non Tender, Non Distended and Normal Bowel Sounds
Musculoskeletal: No Clubbing, No Cyanosis and No Edema
Neuro: Other (Mild bradykinesia. No significant rigidity. Somewhat flat affect.)
Psych: No Anxious or Depressed
Assessment/Plan
64y M with PMH significant for hypertension, DM-II and liver transplant s/p Hep C treatment who presents to ED complaining of fall at home today. Patient states that he was recently diagnosed with Parkinson's disease. He started on Sinemet
about 2-3 weeks ago and has noted some improvement in bradykinesia / rigidity. He has felt more weak however. Today he had a fall at home when his legs 'gave out'. He denies striking his head, LOC / syncope or any significant injury or trauma.
He was unable to get up - even with assistance from his and EMS was called. Patient was brought to the ED for further evaluation and treatment.
Patient states that he has had hacking, minimally productive cough for about one week. No fevers / chills. No known sick contacts.
Patient denies any other focal complaints including N/V/D, dysuria, etc.
Patient is a 64y M with PMH significant for HTN, DM-II, Parkinson's and prior liver transplant who presents to ED complaining of weakness, fall and cough.
64y M with Parkinson's presents after fall at home. Cough x 1 week. Immunocompromised (s/p liver transplant). Abx for CAP. Supportive care, PT / OT. Has chronic hyponatremia, DM.
Fall at Home
Generalized Weakness
- Likely multifactorial and secondary to recently diagnosed Parkinson's, acute infectious process, etc.
- No acute injury, head trauma or LOC.
- PT / OT evaluations.
- Treat underlying issues as noted below.
Pneumonia / Bronchitis
- Latter seems more likely with unremarkable CXR.
- Continue abx given immunocompromise (transplant therapy).
- Cough suppressant, mucolytics, nebs, etc.
- Follow for clinical improvement.
- Monitor for fever, increased dyspnea, etc.
Chronic Hyponatremia
- Na = 129 (corrected for glucose) which is consistent with recent values.
- Patient does note that he drinks 6-8 bottles of water and 6-8 cups of coffee daily.
- Modest fluid restriction and follow for changes.
- TFTs -- TSH 3.18, cortisol -- 9.9 --> follow-up outpatient
Parkinson's Disease
- Relatively new diagnosis on only on Sinemet for about 2-3 weeks.
- Could consider dose adjustment - defer to outpatient neurology (Dr. Sanders).
- PT / OT as noted above.
- Continue current Sinemet dose without change for now.
Liver Transplant Status
Immunocompromised State
History of Hep C s/p Treatment
- Stable. Follow-up tacrolimus level.
- Continue current regimen without changes for now.
Constipation
- Bowel regimen ordered, discussed with patient
Benign Hypertension
- Stable. Continue outpatient regimen.
DM-II
- Stable. Hold metformin.
- SSI coverage as needed.
- Update A1C.
Hypothyroidism
- Continue current T4 replacement. Update TFTs.
Pancreatic Insufficiency
- Stable. Continue Creon with meals.
DVT Prophylaxis: Lovenox
Code Status: Full
Anticipated Discharge: 24 - 48 hours
Subjective/Interval History
-
Date of Service: February 16, 2025
Patient was seen and examined. He reported feeling better than when he came in, requested medications for constipation.
Objective Data
-
Labs:
Laboratory Results
02/16/25
06:27
WBC Pending
Hgb Pending
Hct Pending
Plt Count Pending
Sodium Pending
Potassium Pending
Chloride Pending
Carbon Dioxide Pending
BUN Pending
Creatinine Pending
Glucose Pending
Calcium Pending
Vital Signs:
Vital Signs
Temp Pulse Resp BP Pulse Ox
98.9 F 76 19 142/69 95
02/15/25 22:45 02/15/25 22:45 02/15/25 22:45 02/15/25 22:45 02/15/25 23:58
I&O
02/15/25 02/16/25 02/17/25
06:59 06:59 06:59
Intake Total 480 / 480
Output Total 750 / 750
Balance -270 / -270
[2025-02-16] MEDS: NOVOLOG FLEXPEN-LOW RESISTANCE SC (07:29)
[2025-02-16 07:30] VITALS: BP 136/77
[2025-02-16 07:57] LABS: Hematocrit 34.8 % (39.0-52.0); Hemoglobin 12.7 g/dL (13.0-18.0); Mean Corp Hgb Conc. 36.5 g/dL (33.0-37.0); Mean Corpuscular Hgb 33.2 pg (27.0-31.0); Mean Corpuscular Volume 91.1 fL (80.0-94.0); Mean Platelet Volume 9.2 fL (7.4-10.4); Platelet Count 239 10^3/uL (130-400); Red Blood Cell Count 3.82 10^6/uL (4.70-6.10); White Blood Cell Count 9.9 10^3/uL (4.8-10.8)
[2025-02-16 07:59] LABS: Blood Urea Nitrogen 17 mg/dl (9-20); Calcium 9.4 mg/dl (8.4-10.2); Carbon Dioxide 25 mmol/L (22-30); Chloride 98 mmol/L (98-107); Estimated Creatinine Clearance 73 ml/min; Glucose 142 mg/dl (70-99); Potassium 4.2 mmol/L (3.5-5.1); Sodium 134 mmol/L (135-145); eGFR > 60.00
[2025-02-16] MEDS: SINEMET 25-100 1 TABLET PO ×3 (08:14→23:03)
[2025-02-16] MEDS: NEURONTIN 300 MG PO (08:14)
[2025-02-16] MEDS: FLOMAX 0.4 MG PO (08:14)
[2025-02-16] MEDS: VIBRAMYCIN 100 MG PO ×2 (08:14→20:38)
[2025-02-16] MEDS: MUCINEX 600 MG PO ×2 (08:14→20:38)
[2025-02-16] MEDS: PROSCAR 5 MG PO (08:14)
[2025-02-16] MEDS: PROGRAF 0.5 MG PO (08:15)
[2025-02-16] MEDS: LANTUS 0.14 UNITS SC (08:15)
[2025-02-16] MEDS: NORVASC 10 MG PO (08:15)
[2025-02-16] MEDS: URSO 250 MG PO ×2 (08:15→20:37)
[2025-02-16 08:29] LABS: Cortisol, Random 9.9 ug/dl; TSH Reflex To Free T4 3.18 uIU/ml (0.47-4.68)
[2025-02-16 09:03] VITALS: BP 133/78; BP 138/82; BP 141/81; PULSE 72; PULSE 76
[2025-02-16 09:52] VITALS: BP 128/73; BP 142/71; PULSE 71
[2025-02-16 09:54] VITALS: BP 128/73; BP 142/71; PULSE 71
--- NOTE | 2025-02-16 09:54 | PTOTSP ---
Speech Therapy Evaluation:
Pt presents with functional oral phase. Intermittent cough observed during PO trials, however did not appear to increase in frequency compared to cough that's present outside of PO intake. Pt at risk for aspiration given new dx of Parkinson's,
however CXR without acute cardiopulmonary process, pt on RA, WBC WNL, and pt passed 3oz swallow screen.
Recommend:
1. Continue IDDSI Level 7 (regular solids) and thin liquids
2. Medications as tolerated
3. General aspiration precautions
4. AUTOMOTIVE VEHICLE INSPECTOR to follow to monitor tolerance of diet and determine if pt would benefit from instrumental assessment
--- NOTE | 2025-02-16 10:06 | PTCARENOTE ---
pt received prn cough medication this morning. accucheck 147 so did not require sliding scale insulin. pt is oob to the chair. chair alarm intact. using bedside urinal. pt uses a cane at baseline but states that he was losing his footing more
frequently at home. PT/OT to see him today. pt with good appetite
[2025-02-16] MEDS: NEURONTIN 600 MG PO ×3 (11:55→23:09)
[2025-02-16] MEDS: VITAMIN D3 (cholecalciferol) 50 MCG PO (11:55)
[2025-02-16 12:09] LABS: Glucose - Point of Care 188 mg/dl (70-99)
[2025-02-16] MEDS: NOVOLOG FLEXPEN-LOW RESISTANCE 1 UNITS SC ×2 (12:41→17:27)
--- NOTE | 2025-02-16 15:07 | VNURNOTE ---
Home Health Liaison spoke w/patient's spouse, discussed [facility] therapy, visits, schedule and homebound status. Spouse understands that visits at home will be 2-3 x per week to assess and teach medical management. [facility] is [facility] for start of care in 1-2 days after discharge from . Per PT notes, recommend Home PT then transition back to outpt PT.
[facility] referral completed in [facility].
[2025-02-16] MEDS: MIRALAX 17 GRAMS PO (15:22)
[2025-02-16 16:14] VITALS: BP 131/74
[2025-02-16 17:10] LABS: Glucose - Point of Care 158 mg/dl (70-99)
[2025-02-16] MEDS: STERILE WATER FOR INJECTION 10 ML IV (17:28)
[2025-02-16] MEDS: ROCEPHIN 1000 MG IV (17:28)
[2025-02-16] MEDS: ZYRTEC 10 MG PO (17:29)
[2025-02-16] MEDS: PROTONIX 20 MG PO (17:29)
[2025-02-16] MEDS: LOVENOX 40 MG SC (17:29)
[2025-02-16] MEDS: TYLENOL 650 MG PO (20:37)
[2025-02-16] MEDS: SENOKOT-S 1 TABLET PO (20:38)
[2025-02-16 21:03] LABS: Glucose - Point of Care 243 mg/dl (70-99)
[2025-02-16] MEDS: CRESTOR 10 MG PO (23:03)
[2025-02-16] MEDS: PROGRAF 1 MG PO (23:03)
[2025-02-16] MEDS: COZAAR 100 MG PO (23:06)
[2025-02-16] MEDS: ZOLOFT 25 MG PO (23:07)
[2025-02-16 23:38] VITALS: BP 138/73
[2025-02-17 06:00] VITALS: BMI 26.6
[2025-02-17] MEDS: SYNTHROID 100 MCG PO (06:36)
[2025-02-17] MEDS: SYNTHROID 50 MCG PO (06:36)
[2025-02-17 07:48] LABS: Glucose - Point of Care 173 mg/dl (70-99)
[2025-02-17] MEDS: LANTUS 0.14 UNITS SC (07:57)
[2025-02-17] MEDS: NOVOLOG FLEXPEN-LOW RESISTANCE 1 UNITS SC (07:57)
[2025-02-17 07:59] VITALS: BP 132/75
[2025-02-17] MEDS: SINEMET 25-100 1 TABLET PO (07:59)
[2025-02-17] MEDS: PROSCAR 5 MG PO (07:59)
[2025-02-17] MEDS: URSO 250 MG PO (07:59)
[2025-02-17] MEDS: FLOMAX 0.4 MG PO (07:59)
[2025-02-17] MEDS: MIRALAX 17 GRAMS PO (07:59)
[2025-02-17] MEDS: SENOKOT-S 1 TABLET PO (07:59)
[2025-02-17] MEDS: VIBRAMYCIN 100 MG PO (07:59)
[2025-02-17] MEDS: MUCINEX 600 MG PO (07:59)
[2025-02-17] MEDS: NORVASC 10 MG PO (07:59)
[2025-02-17] MEDS: NEURONTIN 300 MG PO (07:59)
[2025-02-17] MEDS: PROGRAF 0.5 MG PO (07:59)
--- NOTE | 2025-02-17 08:14 | W.PN.HOSP.TC ---
Today's Communication/Plan
-
Discharge today. Patient is also in agreement with discharge today.
Assessment / Plan
Assessment / Plan
Physical Exam
General: Not in acute distress
HEENT: Moist mucous membranes
Respiratory: Clear to Auscultation Bilaterally
Cardiac: S1/S2 and Regular Rhythm
GI: Soft, Non Tender, Non Distended and Normal Bowel Sounds
Musculoskeletal: No Cyanosis and No Edema
Neuro: Other (Mild bradykinesia. No significant rigidity. Somewhat flat affect.)
Psych: No Anxious or Depressed
Assessment/Plan
64y M with PMH significant for hypertension, DM-II and liver transplant s/p Hep C treatment who presents to ED complaining of fall at home today. Patient states that he was recently diagnosed with Parkinson's disease. He started on Sinemet
about 2-3 weeks ago and has noted some improvement in bradykinesia / rigidity. He has felt more weak however. Today he had a fall at home when his legs 'gave out'. He denies striking his head, LOC / syncope or any significant injury or trauma.
He was unable to get up - even with assistance from his and EMS was called. Patient was brought to the ED for further evaluation and treatment.
Patient states that he has had hacking, minimally productive cough for about one week. No fevers / chills. No known sick contacts.
Patient denies any other focal complaints including N/V/D, dysuria, etc.
Patient is a 64y M with PMH significant for HTN, DM-II, Parkinson's and prior liver transplant who presents to ED complaining of weakness, fall and cough.
Fall at Home
Generalized Weakness
- Likely multifactorial and secondary to recently diagnosed Parkinson's, acute infectious process, etc.
- No acute injury, head trauma or LOC.
- PT / OT evaluations.
- Treat underlying issues as noted below.
Pneumonia / Acute Bronchitis
Concern for Possible Sepsis - RESOLVED - from Bronchitis
- Latter seems more likely with unremarkable CXR.
- Continue abx given immunocompromise (transplant therapy) -- can continue antibiotics through 02/19/25 to complete a 5 day course given immunocompromised status
- Cough suppressant, mucolytics, nebs, etc.
- Follow for clinical improvement.
- Monitor for fever, increased dyspnea, etc.
Chronic Hyponatremia
- Na = 135 (corrected for glucose)
- Patient does note that he drinks 6-8 bottles of water and 6-8 cups of coffee daily.
- Modest fluid restriction and follow for changes.
- TFTs -- TSH 3.18, cortisol -- 9.9 --> follow-up outpatient
Parkinson's Disease
- Relatively new diagnosis on only on Sinemet for about 2-3 weeks.
- Could consider dose adjustment - defer to outpatient neurology (Dr. Sanders).
- PT / OT as noted above.
- Continue current Sinemet dose without change for now.
Liver Transplant Status
Immunocompromised State
History of Hep C s/p Treatment
- Stable. Follow-up tacrolimus level. Follow-up with racing driver.
- Continue current regimen without changes for now.
Constipation
- Bowel regimen ordered, discussed with patient
Benign Hypertension
- Stable. Continue outpatient regimen.
DM-II
- Stable. Can continue Metformin outpatient.
- SSI coverage as needed.
- Updated A1C 7%
Hypothyroidism
- Continue current T4 replacement.
Pancreatic Insufficiency
- Stable. Continue Creon with meals.
DVT Prophylaxis: Lovenox
Code Status: Full
More than 30 minutes spent in discharge including
Final examination of the patient
Summarizing hospital stay
Instructions for continuing care to all relevant caregivers
Preparation of discharge records, prescriptions, and referral forms
Total time spent (in minutes): 36
Anticipated Discharge: Today
Subjective/Interval History
-
Date of Service: February 17, 2025
Patient was seen and examined. He denied any chest pain or shortness of breath, and he mentioned that his cough his better. He stated he would be happy to go home today.
Objective Data
-
Labs:
Laboratory Results
02/17/25
08:14
WBC Pending
Hgb Pending
Hct Pending
Plt Count Pending
Sodium Pending
Potassium Pending
Chloride Pending
Carbon Dioxide Pending
BUN Pending
Creatinine Pending
Glucose Pending
Calcium Pending
Vital Signs:
Vital Signs
Temp Pulse Resp BP Pulse Ox
98.0 F 66 18 132/75 94
02/17/25 07:59 02/17/25 07:59 02/17/25 07:59 02/17/25 07:59 02/17/25 07:59
I&O
02/16/25 02/17/25 02/18/25
06:59 06:59 06:59
Intake Total 480 / 480 1440 / 1440
Output Total 750 / 750 450 / 450
Balance -270 / -270 990 / 990
[2025-02-17] MEDS: ZENPEP DELAYED RELEASE CAPSULE 5 CAPSULE PO ×2 (08:36→11:32)
[2025-02-17 09:23] LABS: Hematocrit 39.9 % (39.0-52.0); Hemoglobin 14.4 g/dL (13.0-18.0); Mean Corp Hgb Conc. 36.1 g/dL (33.0-37.0); Mean Corpuscular Hgb 32.9 pg (27.0-31.0); Mean Corpuscular Volume 91.1 fL (80.0-94.0); Mean Platelet Volume 8.9 fL (7.4-10.4); Platelet Count 284 10^3/uL (130-400); Red Blood Cell Count 4.38 10^6/uL (4.70-6.10); White Blood Cell Count 10.5 10^3/uL (4.8-10.8)
--- NOTE | 2025-02-17 09:31 | PN.CDI ---
CDI
- -
CDI:
Physician Documentation Request
Admit Date: 02/15/25 20:39
Dear Doctor Merlyn,
Patient admitted for pneumonia v bronchitis.
02/16 Hospitalist PN: 'fall at home. Cough x 1 week...Pneumonia / Bronchitis - Latter seems more likely with unremarkable CXR.'
Clarify which of the following accurately represents the acuity of the bronchitis. Possible options might include:
____ Acute
Chronic
____ Other
Use of terms such as suspected, likely, concern for, or probable (associated with a specific diagnosis that is being evaluated, monitored, or treated as if it exists) are acceptable and can be coded in the inpatient setting, when documented at the
time of discharge.
Thank you,
Fadumo Villarreal RN, BSN
CDI Specialist
Available via [place] text
Please use your independent medical judgment in providing your response.
[2025-02-17 09:45] LABS: Blood Urea Nitrogen 15 mg/dl (9-20); Calcium 9.7 mg/dl (8.4-10.2); Carbon Dioxide 25 mmol/L (22-30); Chloride 95 mmol/L (98-107); Estimated Creatinine Clearance 73 ml/min; Glucose 244 mg/dl (70-99); Potassium 4.3 mmol/L (3.5-5.1); Sodium 132 mmol/L (135-145); eGFR > 60.00
--- NOTE | 2025-02-17 09:45 | PN.CDI ---
CDI
- -
CDI:
Physician Documentation Request
Admit Date: 02/15/25 20:39
Dear Doctor Merlyn,
Patient admitted for pneumonia v bronchitis.
Laboratory Tests
02/15/25
14:38
WBC 13.1 H
02/15/25
19:10 02/15/25
20:15 02/15/25
21:00
Resp Rate 24 27 22
Please clarify which most accurately describes the patient:
Sepsis
Systemic manifestations of infection, with 2 or more SIRS criteria which include:
Fever > 100.4 degrees F or hypothermia < 96.8 degrees F
Leukocytosis - WBC > 12,000 or leukopenia, WBC < 4,000 or > 10% bands
Tachycardia - > 90 beats per minute
Tachypnea - RR > 20 breaths per minute or PaCO2 < 32 mmHg
Source: Merck Manual 2013
Indicate the known or suspected organism
Indicate the known or suspected underlying infection, such as UTI, pneumonia or cellulitis
Indicate if a suspected bacterial infection of unknown source
Indicate if associated with an implanted device such as a F/C, PICC line, orthopedic hardware etc.
Indicate if there is associated organ dysfunction, such as renal or respiratory failure
SIRS due to a non-infectious source
Indicate the known or suspected etiology
Indicate if there is associated organ dysfunction, such as renal or respiratory failure
Other
Unable to determine
Use of terms such as suspected, likely, concern for, or probable (associated with a specific diagnosis that is being evaluated, monitored, or treated as if it exists) are acceptable and can be coded in the inpatient setting, when documented at the
time of discharge.
Thank you,
Fadumo Villarreal RN, BSN
CDI Specialist
Available via [place] text
Please use your independent medical judgment in providing your response.
[2025-02-17] MEDS: PHENERGAN WITH CODEINE SYRUP 5 ML PO (10:39)
[2025-02-17 11:31] LABS: Glucose - Point of Care 206 mg/dl (70-99)
[2025-02-17] MEDS: VITAMIN D3 (cholecalciferol) 50 MCG PO (11:32)
[2025-02-17] MEDS: NOVOLOG FLEXPEN-LOW RESISTANCE 2 UNITS SC (11:33)
[2025-02-17] MEDS: NEURONTIN 600 MG PO (11:33)
--- NOTE | 2025-02-17 13:19 | W.DCSUMMARY ---
Discharge Summary
Discharge Data
Date of Admission: 02/15/25
Date of Discharge: 02/17/25
Total time spent discharging patient (in min): 36
-
Pending Results: Yes
Additional Pending Results:
Tacrolimus Level
Hospital Course
64 y/o male with past medical history of recently diagnosed Parkinson's Disease (and recently started Sinemet), hypertension, type 2 Diabetes Mellitus and liver transplant (on immunosuppression medications) status post Hep C treatment who presented
complaining of fall at home on the day of presentation. Patient denied head trauma, loss of consciousness or any significant injury or trauma. Patient stated that he has had hacking, minimally productive cough for about one week duration. Patient
was started on antibiotics for his bronchitis in the setting of his immunosuppressed state. It was determined, and patient also preferred a short course of antibiotics, given his immunosuppressed state. Patient was doing better and looked forward to
going home on the day of discharge.
Discharge Plan
-
Patient Disposition: Home with Home Care
Discharge Diagnosis/Procedures: Fall at Home
Generalized Weakness - IMPROVED
Suspected Acute Bronchitis
Chronic Hyponatremia
Parkinson's Disease
Liver Transplant Status
Immunocompromised State
History of Hepatitis C status post Treatment
Constipation
Benign Hypertension
Type 2 Diabetes Mellitus
Hypothyroidism
Pancreatic Insufficiency
Chest X-Ray Results (as per radiologist's report)
'FINDINGS:
There is no parenchymal opacification or vascular congestion. The cardiomediastinal silhouettes are within the limits of normal. Calcific atherosclerotic changes of the thoracic aortic arch are noted. There is no pneumothorax, pleural effusion or
mediastinal shift.'
Condition: Good
Diet: Low Fat, Low Cholesterol, Diabetic, Carb Controlled and Restrict fluids to 48 oz
Activity: As tolerated
Blood Work: CBC, BMP, Magnesium within 1 week with primary care provider's office
Other Services: VN and PT
Activity Restrictions/Additional Instructions:
Tacrolimus level was ordered in the hospital and is still pending. After you leave the hospital, you will need to log into your patient portal or call the hospital for the results of that. You will also need to contact your transplant physician
within the next few days to follow-up with them.
Instructions: Preventing falls in adults, Cefdinir, Doxycycline
Referrals:
NONE,* [Family Provider] -
Additional Discharge Medication Instructions: Cefdinir and Doxycycline are new medications which you will continue through February 19, 2025.
Your Gabapentin dose has been reduced to 600 mg three times a day given your renal function (Creatinine Clearance 50 to 79) (so the 300 mg daily gabapentin has been stopped)
You were getting 14 units of long-acting Insulin here -- you may want to resume your home long-acting glargine Insulin at 16 units instead of 18 units to make sure you don't get hypoglycemia.
Prescriptions:
New
polyethylene glycol 3350 17 gram Powder In Packet
17 g PO DAILY Qty: 30 0RF
guaifenesin 600 mg Tablet Extended Release 12hr
600 mg PO Q12 Qty: 14 0RF
sennosides-docusate sodium 8.6-50 mg Tablet
1 tab PO BID Qty: 14 0RF
doxycycline hyclate 100 mg Capsule
100 mg PO Q12 Qty: 5 0RF
cefdinir 300 mg capsule
300 mg PO Q12H Qty: 6 0RF
Continued
gabapentin 600 MG tablet
600 mg PO TID@1200,1600,2200
amlodipine 10 MG tablet
10 mg PO DAILY
tacrolimus 1 MG capsule
1 mg PO HS
calcium carb-D3-mag ox-zinc ox [Elijah Mag Zinc Plus D3] 1 EACH tablet
1 ea PO QPM Qty: 0
metformin 500 MG tablet
500 mg PO BID
alendronate 70 MG tablet
70 mg PO MALHOTRA
levothyroxine 100 MCG tablet
100 mcg PO DAILY
levothyroxine 100 MCG tablet
50 mcg PO MOWEFR
Patient Comments:
02/15/25: taken w/ 100mcg = 150mcg
sertraline 25 MG tablet
25 mg PO HS
cholecalciferol (vitamin D3) 2,000 UNITS tablet
2,000 units PO NOON
vitamin E (dl, acetate) 400 UNITS capsule
400 units PO NOON
xldavxlc-ijz-hgfwl-Bosw-hyalur 1 EACH tablet extended release 12 hr
1 ea PO BID@1200,2200
Cla Oil
800 mg PO NOON
Mct
1 tab PO NOON
Creon 36,000-114,000- 180,000 unit Capsule,Delayed Release(Dr/Ec)
5 cap PO MEALS
cetirizine [Zyrtec] 10 mg Tablet
10 mg PO QPM
minoxidil 5 % Solution
1 ml TOPICAL DAILY
pantoprazole 20 mg Tablet,Delayed Release (Dr/Ec)
20 mg PO QPM
hydrocortisone 2.5 % Cream With Perineal Applicator
1 applic CA DAILY
tamsulosin 0.4 mg Capsule
0.4 mg PO DAILY
ursodiol 250 mg Tablet
250 mg PO BID
mometasone 50 mcg/actuation [place],Non-Aerosol
1 spray INTRANASAL DAILY
azelastine 137 mcg (0.1 %) [place],Non-Aerosol
1 spray INTRANASAL DAILY
carbidopa-levodopa 25-100 mg Tablet
1 tab PO TID
losartan 100 mg Tablet
100 mg PO HS
finasteride 5 mg Tablet
5 mg PO DAILY
tacrolimus 0.5 mg Capsule
0.5 mg PO DAILY
insulin lispro [Humalog KwikPen Insulin] 100 unit/mL Insulin Pen
0 - 5 sliding scale dose SC AC
coenzyme Q10 [CoQ-10] 100 mg Capsule
100 mg PO HS
rosuvastatin 10 mg Tablet
10 mg PO HS
testosterone 20.25 mg/1.25 gram (1.62 %) Gel In Metered-Dose Pump
2 pump TOPICAL DAILY
flaxseed-omega3,6,9-fatty acid 1,300-670-155 mg Capsule
1 cap PO HS
Mounjaro 2.5 mg/0.5 mL Pen Injector
2.5 mg SC MALHOTRA
Rx Instructions:
for 4 weeks
insulin glargine U-300 conc [Toujeo SoloStar U-300 Insulin] 300 UNIT/ML insulin pen
18 unit SC DAILY
Discontinued
gabapentin 300 MG capsule
300 mg PO DAILY
Discharge Orders:
Discharge Patient (As Directed); Ordered 02/17/25
Ordered By: Syed Zuleta
Discharge Date and Time
Discharge Date/Time: 02/17/25 14:10
Print Language: [place] CITIZ[place]
--- NOTE | 2025-02-17 13:48 | CM ---
Reviewed the chart notes. Patient for discharge to home today.
Plan: Discharge to home with [facility] services.
[2025-02-17 13:49] VITALS: BP 147/80
== END 2025-02-17 14:10 | disposition home health service (06) | DRG 871 ==
LOC: 2 NORTH 20:39
PROVIDERS: Emergency Medicine; Physician Assistant; ADMITTING PHYSICIAN Hospitalist; ATTENDING PHYSICIAN Hospitalist; EMERGENCY PHYSICIAN Student in an Organized Health Care Education/Training Program
DX: A41.9 Sepsis, unspecified organism (principal); J18.9 Pneumonia, unspecified organism; E87.1 Hypo-osmolality and hyponatremia; Z94.4 Liver transplant status; D84.9 Immunodeficiency, unspecified; W19.XXXA Unspecified fall, initial encounter; J20.9 Acute bronchitis, unspecified; G20.A1 Parkinson's disease without dyskinesia, without mention of fluctuations; I12.9 Hypertensive chronic kidney disease with stage 1 through stage 4 chronic kidney disease, or unspecified chronic kidney disease; N18.30 Chronic kidney disease, stage 3 unspecified; E11.22 Type 2 diabetes mellitus with diabetic chronic kidney disease; E03.9 Hypothyroidism, unspecified; K86.89 Other specified diseases of pancreas; E78.5 Hyperlipidemia, unspecified; F32.A Depression, unspecified; F41.9 Anxiety disorder, unspecified; N40.1 Benign prostatic hyperplasia with lower urinary tract symptoms; Z87.891 Personal history of nicotine dependence; Z79.4 Long term (current) use of insulin; Z79.890 Hormone replacement therapy; Z11.52 Encounter for screening for COVID-19
CPT/HCPCS: 71046; 80048; 80053; 80197; 81003; 81015; 82533; 82962; 83036; 83930; 83935; 84300; 84443; 85025; 85027; 87070; 87086; 87502; 87811; 92610; 93005; 94667; 96361; 96374; 96375; 97163; 97167; 99285

== ENCOUNTER 2025-05-10 11:22 | Outpatient (RCR) | payer MEDICARE, OTHER, SELFPAY | END 2025-05-10 23:59 | disposition home or self-care (01) | LOC: ROT 11:22 | PROVIDERS: ATTENDING PHYSICIAN Family Medicine | DX: G20.C Parkinsonism, unspecified (principal); Z73.6 Limitation of activities due to disability | CPT/HCPCS: 97167; 97535 ==

== ENCOUNTER → 2025-06-01 14:17 | Outpatient (REF) | payer MEDICARE, OTHER, SELFPAY ==
[2025-06-01 15:46] LABS: ALT (SGPT) 17 U/L (0-50); AST (SGOT) 19 U/L (17-59); Albumin 4.8 g/dl (3.5-5.0); Alkaline Phosphatase 70 U/L (38-126); Blood Urea Nitrogen 29 mg/dl (9-20); Calcium 9.6 mg/dl (8.4-10.2); Carbon Dioxide 22 mmol/L (22-30); Chloride 96 mmol/L (98-107); Glucose 198 mg/dl (70-99); Potassium 4.8 mmol/L (3.5-5.1); Sodium 130 mmol/L (135-145); Total Protein 7.1 g/dl (6.3-8.2); eGFR > 60.00
== END ==
LOC: REG 14:17
PROVIDERS: ATTENDING PHYSICIAN Internal Medicine Transplant Hepatology; FAMILY PHYSICIAN Family Medicine
DX: Z94.4 Liver transplant status (principal)
CPT/HCPCS: 36415; 80053; 80197

== ENCOUNTER 2025-06-08 15:51 | Outpatient (RCR) | payer MEDICARE, OTHER, SELFPAY | END 2025-06-10 11:43 | disposition home or self-care (01) | LOC: RPT 15:51 | PROVIDERS: ATTENDING PHYSICIAN Family Medicine | DX: G20.B2 Parkinson's disease with dyskinesia, with fluctuations (principal); Z73.6 Limitation of activities due to disability; R26.89 Other abnormalities of gait and mobility; R29.6 Repeated falls | CPT/HCPCS: 97110; 97112; 97116; 97162; 97530 ==

== ENCOUNTER 2025-07-06 09:15 | Outpatient (RCR) | payer MEDICARE, OTHER, SELFPAY | END 2025-07-06 23:59 | disposition home or self-care (01) | LOC: RST 09:15 | PROVIDERS: ATTENDING PHYSICIAN Family Medicine | DX: G20.B2 Parkinson's disease with dyskinesia, with fluctuations (principal); R49.0 Dysphonia | CPT/HCPCS: 92507; 92524 ==

== ENCOUNTER → 2025-07-19 11:07 | Outpatient (REF) | payer MEDICARE, OTHER, SELFPAY ==
[2025-07-19 13:57] LABS: ALT (SGPT) 34 U/L (0-50); AST (SGOT) 25 U/L (17-59); Albumin 5.1 g/dl (3.5-5.0); Alkaline Phosphatase 102 U/L (38-126); Blood Urea Nitrogen 29 mg/dl (9-20); Calcium 10.1 mg/dl (8.4-10.2); Carbon Dioxide 28 mmol/L (22-30); Chloride 97 mmol/L (98-107); Glucose 201 mg/dl (70-99); Potassium 5.3 mmol/L (3.5-5.1); Sodium 135 mmol/L (135-145); Total Protein 7.7 g/dl (6.3-8.2); eGFR > 60.00
== END ==
LOC: REG 11:07
PROVIDERS: ATTENDING PHYSICIAN Internal Medicine Transplant Hepatology; FAMILY PHYSICIAN Family Medicine
DX: Z94.4 Liver transplant status (principal)
CPT/HCPCS: 36415; 80053; 80197

== ENCOUNTER 2025-07-20 14:10 | Outpatient (RCR) | payer SELFPAY | END 2025-07-20 23:59 | disposition home or self-care (01) | LOC: RPT 14:10 | PROVIDERS: ATTENDING PHYSICIAN Family Medicine | DX: G20.A1 Parkinson's disease without dyskinesia, without mention of fluctuations (principal) ==

== ENCOUNTER 2025-08-06 13:40 | Outpatient (RCR) | payer MEDICARE, OTHER, SELFPAY | END 2025-08-06 23:59 | disposition home or self-care (01) | LOC: RST 13:40 | PROVIDERS: ATTENDING PHYSICIAN Family Medicine | DX: G20.B2 Parkinson's disease with dyskinesia, with fluctuations (principal); R49.0 Dysphonia | CPT/HCPCS: 92507 ==

== ENCOUNTER 2025-08-13 10:06 | Outpatient (RCR) | payer MEDICARE, OTHER, SELFPAY | END 2025-08-13 12:03 | disposition home or self-care (01) | LOC: RST 10:06 | PROVIDERS: ATTENDING PHYSICIAN Family Medicine | DX: G20.B2 Parkinson's disease with dyskinesia, with fluctuations (principal); R49.0 Dysphonia | CPT/HCPCS: 92507 ==

== ENCOUNTER → 2025-11-07 13:50 | Outpatient (REF) | payer MEDICARE, OTHER, SELFPAY | LOC: PAVMRI 13:50 | PROVIDERS: ATTENDING PHYSICIAN Pain Medicine Interventional Pain Medicine; FAMILY PHYSICIAN Family Medicine | DX: M54.16 Radiculopathy, lumbar region (principal) | CPT/HCPCS: 72148 ==